=== PATIENT | female | born 1995 | race African-American/Black ===

== ENCOUNTER 2016-12-10 19:37 | Emergency (ER) | payer MEDICAID, OTHER ==
[~2016-12-10] VITALS: Ht 162.6 cm; Wt 86.0 kg
[2016-12-10] MEDS ORDERED: FAMOTIDINE 20MG/2ML VIAL IV ONE (21:30)
[2016-12-10] MEDS ORDERED: METHYLPREDNISOLONE SOD SUCC 125 MG/2 ML VIAL IV ONE (21:30)
[2016-12-10] MEDS ORDERED: NAPROXEN 500MG TABLET PO ONE (22:15)
[2016-12-11 00:50] VITALS: BP 118/72
== END 2016-12-11 00:50 | disposition home or self-care (01) ==
LOC: ER 19:37
DX: T78.40XA Allergy, unspecified, initial encounter (principal); Z91.013 Allergy to seafood; X58.XXXA Exposure to other specified factors, initial encounter; Y93.89 Activity, other specified; Y99.8 Other external cause status; Y92.89 Other specified places as the place of occurrence of the external cause
CPT/HCPCS: 96374; 96375; 99284; J2930; J3490; Z7610